=== PATIENT | female | born 1990 | race African-American/Black ===

== ENCOUNTER 2017-06-23 16:14 | Emergency (ER) | payer MEDICAID ==
[~2017-06-23] VITALS: Ht 175.3 cm; Wt 82.0 kg
[2017-06-23 16:56] VITALS: BP 120/73
[2017-06-23 17:44] LABS: CLARITY URINE CLOUDY (CLEAR); COLOR URINE DARK YELLOW (YELLOW); KETONES URINE 2+ (NEGATIVE); LEUKOCYTE ESTERASE URINE NEGATIVE (NEGATIVE); NITRITE URINE NEGATIVE (NEGATIVE); OCCULT BLOOD URINE NEGATIVE (NEGATIVE); PH URINE 5.5 (4.5-8.0); PROTEIN URINE 1+ (NEGATIVE); SPECIFIC GRAVITY URINE 1.036 (1.005-1.030)
[2017-06-23 17:47] LABS: BASOPHILS % 0.4 % (0.0-2.0); EOSINOPHILS % 0.9 % (0.0-5.0); HEMATOCRIT. 40.1 % (36.0-48.0); HEMOGLOBIN. 13.7 g/dL (12.0-16.0); LYMPHOCYTES % 30.9 % (20.0-50.0); MEAN CORPUSCULAR HEMOGLOBIN 31.7 pg (28.0-32.0); MEAN CORPUSCULAR VOLUME 92.5 fL (81.0-99.0); MEAN PLATELET VOLUME 7.7 fl (7.4-10.4); MONOCYTES % 6.5 % (2.0-8.0); NEUTROPHILS % 61.3 % (40.0-76.0); PLATELET 217 x1000/uL (130-400); RED BLOOD CELL COUNT 4.33 mill/uL (4.2-5.4); RED CELL DISTRIBUTION WIDTH 13.6 % (11.6-14.6)
[2017-06-23 17:52] LABS: INR 1.1; PROTHROMBIN TIME 11.2 sec (9.4-11.6)
[2017-06-23 17:56] LABS: CHLORIDE 106 mEq/L (98-107)
[2017-06-23] MEDS ORDERED: CEPHALEXIN 500MG CAPSULE PO ONE (21:00)
[2017-06-23] MEDS ORDERED: ONDANSETRON 4MG ODT PO ONE (21:00)
== END 2017-06-23 21:17 | disposition home or self-care (01) ==
LOC: ER 16:22
DX: N39.0 Urinary tract infection, site not specified (principal); R11.2 Nausea with vomiting, unspecified; F17.200 Nicotine dependence, unspecified, uncomplicated
CPT/HCPCS: 36415; 80053; 81003; 82962; 83690; 85025; 85610; 99284; Q0162